=== PATIENT | female | born 1980 | race Two or more races ===

== ENCOUNTER 2017-09-21 16:08 | Emergency (ER) | payer MEDICAID ==
[~2017-09-21] VITALS: Ht 157.5 cm; Wt 74.0 kg
[2017-09-21] MEDS ORDERED: KETO10TA2 PO (16:22)
[2017-09-21] MEDS ORDERED: ACET-2128 PO (16:22)
[2017-09-21] MEDS ORDERED: MORPHINE SULFATE 4 MG/ML CPJ (NOT FOR IM USE) IV STA (17:45)
[2017-09-21] MEDS ORDERED: KETOROLAC 30MG/ML VIAL IV STA (17:45)
[2017-09-21 20:31] LABS: CLARITY URINE CLEAR (CLEAR); COLOR URINE YELLOW (YELLOW); KETONES URINE TRACE (NEGATIVE); LEUKOCYTE ESTERASE URINE NEGATIVE (NEGATIVE); NITRITE URINE NEGATIVE (NEGATIVE); OCCULT BLOOD URINE NEGATIVE (NEGATIVE); PROTEIN URINE NEGATIVE (NEGATIVE); SPECIFIC GRAVITY URINE 1.019 (1.005-1.030); UROBILINOGEN URINE 0.2 E.U./dL (0.2-1.0)
[2017-09-21] MEDS ORDERED: ACETAMINOPHEN 325MG TABLET PO ONE (21:45)
[2017-09-21 21:50] VITALS: BP 129/89
== END 2017-09-21 22:18 | disposition home or self-care (01) ==
LOC: ER 16:08
DX: M79.1 Myalgia (principal); K80.20 Calculus of gallbladder without cholecystitis without obstruction; G89.29 Other chronic pain; M54.9 Dorsalgia, unspecified
CPT/HCPCS: 74176; 81003; 81025; 96374; 99285; J1885